=== PATIENT | female | born 1950 | race Caucasian/White ===

== ENCOUNTER 2018-07-11 13:44 | Day surgery (SDC) | payer OTHER ==
[2018-07-11] MEDS ORDERED: BUPIVACAINE HCL 0.25% MPF 30 ML SOL INFIL ONE (14:22)
[2018-07-11 14:32] VITALS: O2SAT 97
[2018-07-11] MEDS: DEXAMETHASONE SOD PHOS PF 10 MG/ML SOL IJ ONE ×4 (14:33→14:42)
[2018-07-11 15:00] VITALS: BP 132/75; PULSE 67; RESP 20; TEMP 97.9
== END 2018-07-11 15:40 | disposition home or self-care (01) ==
LOC: SURG 13:44
PROVIDERS: ATTEND Nurse Anesthetist, Certified Registered
DX: M51.17 Intervertebral disc disorders with radiculopathy, lumbosacral region (principal)
CPT/HCPCS: J1100